=== PATIENT | female | born 1955 | race Hispanic/Latino ===

== ENCOUNTER 2019-12-17 11:17 | Emergency (ER) | payer SELFPAY ==
[~2019-12-17] VITALS: Ht 152.4 cm; Wt 63.5 kg
--- NOTE | 2019-12-17 12:11 | Emergency Department Note ---
History of Present Illnes History of Present Illness Chief Complaint: Seizure History of Present Illness This is a 64 year old female arrived to the ED after having a witnessed seizure by family. Patient has no recollection of what happened. EMS picked up patient and state there was a postictal period. Family denies noting any head injury. Patient denies any complaints and is wondering why she is in the emergency department . Chief Complaint Comment PER EMS, THEY WERE CALLED BY HER BROTHER. HE HEARD HER MUMBLING, HE TURNED AROUND AND SHE HAD A DAZED STARE AND SHE WAS SLIDING OFF OF CHAIR. ON ARRIVAL, EMS STATED SHE WAS SLIGHTLY POST ICAL. ON ARRIVAL, PATIENT IS A/O X 3, FOLLOWING COMMANDS. NO SIGNS OF STROKE. NO FACIAL DROOP, MOVING ALL EXTREMITIES, SPEECH IS CLEAR Historian: [employer]/EMS Arrival Mode: HFD Additional Treatment GRANULATING BLENDER: NONE Onset (how long ago): hour(s) Radiation: Reports non-radiation Onset quality: sudden Duration (how long): hour(s) Timing of current episode: constant Progression: unchanged Chronicity: new Relieving factors: none Past Medical/Family History Physician Review I have reviewed the patient's past medical and family history. Any updates have been documented here. Past Medical History Recent Fever: No Clinical Suspicion of Infectio: No New/Unexplained Change in Ment: No Past Medical History: HIV Past Surgical History: Cholecysctectomy, Hysterectomy, Social History Smoking Cessation: Never Smoker Counseling Performed: No Alcohol Use: None Any Illegal Drug Use: No Physically hurt or threatened: No Other Any Pre-Existing Lines (PICC,: No Review of Systems Review of Systems Constitutional: Reports no symptoms EENTM: Reports no symptoms Cardiovascular: Reports no symptoms Respiratory: Reports no symptoms Gastrointestinal: Reports no symptoms Genitourinary: Reports no symptoms Musculoskeletal: Reports no symptoms Integumentary: Reports no symptoms Neurological: Reports as per HPI Psychological: Reports no symptoms Endocrine: Reports no symptoms Hematological/Lymphatic: Reports no symptoms Review of other systems: All other systems negative Physical Exam Related Data Allergies: Coded Allergies: No Known Allergies (Unverified , 12/17/19) Triage Vital Signs Vital Signs Date Time Temp Pulse Resp B/P (MAP) Pulse Ox O2 Delivery O2 Flow Rate FiO2 12/17/19 11:32 98.3 100 18 157/78 100 Room Air Vital signs reviewed: Yes Physical Exam CONSTITUTIONAL Constitutional: Present well-developed, Present well-nourished HENT HENT: Present normocephalic, Present atraumatic, Present oropharynx clear/moist, Present nose normal HENT L/R: Present left ext ear normal, Present right ext ear normal EYES Eyes: Reports PERRL, Reports conjunctivae normal NECK Neck: Present ROM normal PULMONARY Pulmonary: Present effort normal, Present breath sounds normal CARDIOVASCULAR Cardiovascular: Present regular rhythm, Present heart sounds normal, Present capillary refill normal, Present normal rate GASTROINTESTINAL Abdominal: Present soft, Present nontender, Present bowel sounds normal GENITOURINARY Genitourinary: Present exam deferred SKIN Skin: Present warm, Present dry MUSCULOSKELETAL Musculoskeletal: Present ROM normal NEUROLOGICAL Neurological: Present alert, Present oriented x 3, Present no gross motor or sensory deficits PSYCHOLOGICAL Psychological: Present mood/affect normal, Present judgement normal Results Laboratory Lab results reviewed: Yes Laboratory comments Laboratory Tests Test 12/17/19 11:54 White Blood Count 2.50 x10e3/uL (4.8-10.8) Red Blood Count 3.27 x10e6/uL (3.6-5.1) Hemoglobin 10.2 g/dL (12.0-16.0) Hematocrit 31.9 % (34.2-44.1) Mean Corpuscular Volume 97.6 fL (81-99) Mean Corpuscular Hemoglobin 31.2 pg (28-32) Mean Corpuscular Hemoglobin Concent 32.0 g/dL (31-35) Red Cell Distribution Width 18.6 % (11.7-14.4) Platelet Count 432 x10e3/uL (140-360) Neutrophils (%) (Auto) 49.6 % (38.7-80.0) Lymphocytes (%) (Auto) 35.2 % (18.0-39.1) Monocytes (%) (Auto) 10.4 % (4.4-11.3) Eosinophils (%) (Auto) 2.8 % (0.0-6.0) Basophils (%) (Auto) 1.6 % (0.0-1.0) Neutrophils # (Auto) 1.2 (2.1-6.9) Lymphocytes # (Auto) 0.9 (1.0-3.2) Monocytes # (Auto) 0.3 (0.2-0.8) Eosinophils # (Auto) 0.1 (0.0-0.4) Basophils # (Auto) 0.0 (0.0-0.1) Absolute Immature Granulocyte (auto 0.01 x10e3/uL (0-0.1) Urine Color Yellow (YELLOW) Urine Clarity Clear (CLEAR) Urine pH 7 (5 - 7) Urine Specific [place] 1.020 (1.010-1.025) Urine Protein 2+ (NEGATIVE) Urine Glucose (UA) Negative (NEGATIVE) Urine Ketones Negative (NEGATIVE) Urine Blood Large (NEGATIVE) Urine Nitrite Negative (NEGATIVE) Urine Bilirubin Negative (NEGATIVE) Urine Urobilinogen 0.2 mg/dL (0.2 - 1) Urine Leukocyte Esterase Negative (NEGATIVE) Urine RBC 21-50 /HPF (0-5) Urine WBC 21-50 /HPF (0-5) Urine Epithelial Cells Few /LPF (NONE) Urine Bacteria Rare /HPF (NONE) Sodium Level 135 mmol/L (136-145) Potassium Level 3.7 mmol/L (3.5-5.1) Chloride Level 101 mmol/L (98-107) Carbon Dioxide Level 26 mmol/L (22-29) Anion Gap 11.7 mmol/L (8-16) Blood Urea Nitrogen 16 mg/dL (7-26) Creatinine 0.90 mg/dL (0.57-1.11) Estimat Glomerular Filtration Rate > 60 ML/MIN (60-) BUN/Creatinine Ratio 18 (6-25) Glucose Level 130 mg/dL (74-118) Calcium Level 9.0 mg/dL (8.4-10.2) Total Bilirubin 0.2 mg/dL (0.2-1.2) Aspartate Amino Transf (AST/SGOT) 34 IU/L (5-34) Alanine Aminotransferase (ALT/SGPT) 17 IU/L (0-55) Alkaline Phosphatase 190 IU/L (40-150) Ammonia 132 UG/DL (31-123) Creatine Kinase 11 IU/L (29-168) Creatine Kinase MB 0.30 ng/mL (0-5.0) Troponin I 0.005 ng/mL (0-0.300) Total Protein 9.2 g/dL (6.5-8.1) Albumin 2.9 g/dL (3.5-5.0) Globulin 6.3 g/dL (2.3-3.5) Albumin/Globulin Ratio 0.5 (0.8-2.0) Imaging Imaging results reviewed: Yes Impressions IMPRESSION: 1. Left parietal vasogenic edema with possible underlying juxtacortical mass. This could be due to a metastasis in the appropriate clinical setting. Mass effect is local without significant brain herniation. Further evaluation with brain MRI (without and with contrast) is recommended. 2. Questionable trace subarachnoid hemorrhage along the left intraparietal sulcus. 3. No other intracranial abnormalities. 4. Mild supratentorial chronic microvascular ischemic change. Signed by: Dr. Fletcher Morton M.D. on 12/17/2019 1:20 PM Procedures 12 Lead ECG Interpretation ECG Interpretation : ECG: ECG 1 [employer]: Interpreted by ED physician Prior ECG tracings: reviewed Rhythm: sinus rhythm Rate: normal QRS axis: left T waves normal: Yes Clinical Impression: normal ECG Assessment & Plan Medical Decision Making MDM 64-year-old female arrives to the ED for new onset seizure. CT findings concerning for a metastatic mass and/or possible subarachnoid hemorrhage. Patient given Keppra and dexamethasone in the ED. Patient required transfer to [facility] for high level of care. Spoke to neurologist Dr. Chaves who accepted consult. Patient with no focal neurological deficits at time of transfer. Assessment & Plan Final Impression: (1) Neoplasm of brain causing mass effect on adjacent structures (2) New onset seizure Depart Disposition: HOME, SELF-CARE Last Vital Signs Date Time Temp Pulse Resp B/P (MAP) Pulse Ox O2 Delivery O2 Flow Rate FiO2 12/17/19 11:32 98.3 100 18 157/78 100 Room Air Home Meds Reported Medications Itraconazole (ITRACONAZOLE) 100 Mg Capsule, 200 MG PO BID 12/17/19 Oxybutynin Chloride (OXYBUTYNIN CHLORIDE) 5 Mg Tablet, 5 MG PO TID, #30 TAB 12/17/19 Bictegrav/Emtricit/Tenofov Ala (Biktarvy 50-200-25 mg Tablet) 1 Each Tablet, TAB PO DAILY 12/17/19 Sulfamethoxazole/Trimethoprim (SULFAMETHOXAZOLE-TMP SS TABLET) 1 Each Tablet, 800 MG PO TID 12/17/19 Multivitamin/Iron/Folic Acid (Centrum Adults Tablet) 1 Each Tablet, TAB PO DAILY 12/17/19 Spironolactone (SPIRONOLACTONE) 25 Mg Tablet, 25 MG PO DAILY, #60 TAB 12/17/19 JB WILSON, DO Dec 17, 2019 12:11
[2019-12-17 12:16] LABS: BASOPHILS % 1.6 % (0.0-1.0); EOSINOPHILS # (AUTO) 0.1 (0.0-0.4); EOSINOPHILS % 2.8 % (0.0-6.0); HEMATOCRIT 31.9 % (34.2-44.1); HEMOGLOBIN 10.2 g/dL (12.0-16.0); LYMPHOCYTES # (AUTO) 0.9 (1.0-3.2); LYMPHOCYTES % 35.2 % (18.0-39.1); MEAN CORPUSCULAR HEMOGLOBIN 31.2 pg (28-32); MEAN CORPUSCULAR VOLUME 97.6 fL (81-99); MONOCYTES # (AUTO) 0.3 (0.2-0.8); MONOCYTES % 10.4 % (4.4-11.3); NEUTROPHILS # (AUTO) 1.2 (2.1-6.9); NEUTROPHILS % 49.6 % (38.7-80.0); PLATELET COUNT 432 x10e3/uL (140-360); RED BLOOD COUNT 3.27 x10e6/uL (3.6-5.1); RED CELL DISTRIBUTION WIDTH 18.6 % (11.7-14.4)
[2019-12-17 12:26] LABS: CLARITY,URINE CLEAR (CLEAR); COLOR,URINE YELLOW (YELLOW)
[2019-12-17 12:27] LABS: LEUKOCYTE ESTERASE ,URINE NEGATIVE (NEGATIVE); NITRITE,URINE NEGATIVE (NEGATIVE)
[2019-12-17 12:29] LABS: PROTEIN,URINE DIPSTICK 2+ (NEGATIVE)
[2019-12-17 12:30] LABS: BILIRUBIN,URINE NEGATIVE (NEGATIVE); KETONES,URINE NEGATIVE (NEGATIVE); URINE UROBILINOGEN 0.2 mg/dL (0.2 - 1)
[2019-12-17 12:39] LABS: BACTERIA,URINE RARE /HPF; EPITHELIAL CELLS,URINE FEW /LPF; RBC,URINE 21-50 /HPF (0-5); WBC,URINE (MAN) 21-50 /HPF (0-5)
[2019-12-17 12:47] LABS: ALANINE AMINOTRANSFERASE 17 IU/L (0-55); ALBUMIN 2.9 g/dL (3.5-5.0); ALBUMIN/GLOBULIN RATIO 0.5 (0.8-2.0); ALKALINE PHOSPHATASE 190 IU/L (40-150); ANION GAP 11.7 mmol/L (8-16); BLOOD UREA NITROGEN 16 mg/dL (7-26); BUN/CREATININE RATIO 18 (6-25); CARBON DIOXIDE 26 mmol/L (22-29); CHLORIDE 101 mmol/L (98-107); CREATINE KINASE 11 IU/L (29-168); EST GLOMERULAR FILTRATION RATE > 60 ML/MIN (60-); GLUCOSE 130 mg/dL (74-118); POTASSIUM 3.7 mmol/L (3.5-5.1); SODIUM 135 mmol/L (136-145)
[2019-12-17] MEDS ORDERED: BIKTARVY 50-201 EACH PO (12:56)
[2019-12-17] MEDS ORDERED: SPIRONOLACTONE25 MG PO (12:56)
[2019-12-17] MEDS ORDERED: OXYBUTYNIN CHLOR5 MG PO (12:56)
[2019-12-17] MEDS ORDERED: ITRACONAZOLE100 MG PO (12:56)
[2019-12-17] MEDS ORDERED: SULFAMETHOXAZO1 EACH PO (12:56)
[2019-12-17] MEDS ORDERED: CENTRUM ADULTS1 EACH PO (12:56)
--- NOTE | 2019-12-17 13:08 | Diagnostic Imaging Report ---
EXAMINATION: CHEST SINGLE (PORTABLE) INDICATION: Seizure COMPARISON: None FINDINGS: LINES/TUBES:EKG leads overlie the chest. LUNGS:The lungs are well-inflated. No focal consolidation or pulmonary edema. PLEURA:No pleural effusion or pneumothorax. MEDIASTINUM:The cardiomediastinal silhouette appears normal in size and shape. BONES/SOFT TISSUES:No acute osseous injury. ABDOMEN:No free air under the diaphragm. IMPRESSION: No focal pneumonia or pulmonary edema. Signed by: Marek Sanford MD on 12/17/2019 1:04 PM
--- NOTE | 2019-12-17 13:23 | Diagnostic Imaging Report ---
ADDENDUM #1 Item 3 in impression should read, "No other ACUTE intracranial abnormalities." Signed by: Dr. Fletcher Morton M.D. on 12/17/2019 1:[address] BRAIN WO HISTORY: Seizure COMPARISON: Chest radiograph 12/17/2019 TECHNIQUE: Noncontrast axial scans were obtained from skull base to the vertex. Coronal and sagittal reconstructions obtained from the axial data. One or more of the following dose reduction techniques were used: Automated exposure control, adjustment of the mA and/or kV according to patient size, and/or utilization of iterative reconstruction technique. DISCUSSION: Scalp/Skull: Unremarkable. Brain sulci: Appropriate for patient's age. Ventricles: Normal in size and configuration. No hydrocephalus. Extra-axial spaces: No masses or fluid collections. Mild carotid siphon calcifications are present. Parenchyma: Vasogenic edema in the left superior parietal lobule slightly extends into the posterior left paracentral lobule and left inferior parietal lobule. Ill-defined isodense juxtacortical mass along the left intraparietal sulcus is suspected. Subtle local sulcal hyperdensity along the left intraparietal sulcus may be due to trace subarachnoid hemorrhage. Mass effect is local without significant brain herniation. Mild periventricular white matter hypodensities are likely chronic microvascular ischemic changes. Otherwise, no acute parenchymal hemorrhage, or large vascular territory acute infarct. Dural sinuses: No abnormal densities. Sellar/Suprasellar region: Intact. Skull base: Intact. Incidental findings: There is minimal scattered paranasal sinus mucosal thickening. IMPRESSION: 1. Left parietal vasogenic edema with possible underlying juxtacortical mass. This could be due to a metastasis in the appropriate clinical setting. Mass effect is local without significant brain herniation. Further evaluation with brain MRI (without and with contrast) is recommended. 2. Questionable trace subarachnoid hemorrhage along the left intraparietal sulcus. 3. No other intracranial abnormalities. 4. Mild supratentorial chronic microvascular ischemic change. Signed by: Dr. Fletcher Morton M.D. on 12/17/2019 1:20 PM
--- NOTE | 2019-12-17 13:40 | NUR ---
DR. WILSON IS UPDATING PATIENTS SON ON RESULTS AND NEED FOR TRANSFER OUT
[2019-12-17] MEDS ORDERED: DEXAMETHASONE SOD PHOS 10 MG/1 ML VIAL IV ONE (13:45)
[2019-12-17] MEDS ORDERED: LEVETIRACETAM 500MG/5ML VIAL 500 MG in SODIUM CHLORIDE 0.9% 100 ML 100 ML IV SCH (13:45)
--- NOTE | 2019-12-17 14:43 | NUR ---
FAXED FACE SHEET AT [phone] to [phone]
--- NOTE | 2019-12-17 14:53 | NUR ---
REPORT TO GRAHAM Mayo
--- NOTE | 2019-12-17 15:05 | NUR ---
EMS CALLED FOR TRANSPORT
--- NOTE | 2019-12-17 15:54 | NUR ---
GRAHAM Mayo FROM [facility] CALLED BACK TO GIVE UPDATED STATUS.
--- NOTE | 2019-12-17 15:55 | NUR ---
REPORT TO [facility], PATIENT TRANSPORT
== END 2019-12-17 16:05 | disposition other institution (70) ==
LOC: ER 11:22
DX: R56.9 Unspecified convulsions (principal); D49.6 Neoplasm of unspecified behavior of brain; B20 Human immunodeficiency virus [HIV] disease
CPT/HCPCS: 36415; 70450; 71045; 80053; 81001; 82140; 82550; 82553; 84484; 85025; 93005; 99284; J1100; J1953